=== PATIENT | female | born 1995 | race Caucasian/White ===

== ENCOUNTER 2017-06-28 00:26 | Emergency (ER) | payer SELFPAY ==
[2017-06-28 01:09] LABS: BILIRUBIN,URINE NEG (NEG); CLARITY,URINE CLOUDY; COLOR,URINE AMBER; GLUCOSE,URINE NEG (NEG)
[2017-06-28 01:10] LABS: BACTERIA,URINE FEW /HPF (0-FEW); NITRITE,URINE NEG (NEG); RBC,URINE >40 /HPF (0-2); SQUAMOUS EPITHELIAL CELL,UR FEW /LPF; UROBILINOGEN,URINE 0.2 mg/dL (0.2 mg/dL); WBC,URINE OCC /HPF (0-4)
--- NOTE | 2017-06-28 02:26 | RAD ---
INDICATION: [id number] Left flank and abdominal pain with hematuria. No priors. COMPARISON: None. TECHNIQUE: Axial CT images were obtained through the abdomen and pelvis without intravenous contrast. Limited assessment of solid organ structures and vasculature secondary to lack of intravenous contrast. One or more of the following individualized dose reduction techniques were utilized for this examination: 1. Automated exposure control; 2. Adjustment of the mA and/or kV according to patient size; 3. Use of iterative reconstruction technique. FINDINGS: Abdominal aorta is not grossly aneurysmal. No intrahepatic bile duct dilation. Poor evaluation of pancreas without contrast. Spleen grossly unremarkable. No left-sided hydronephrosis. Urinary bladder is largely decompressed. No right-sided hydronephrosis. There are some calcifications in the bilateral pelvis. The appendix measures approximately 5 mm without definite adjacent inflammation at this time. No dilated loops of bowel suggest obstruction. Small fat-containing umbilical hernia is suspected. IMPRESSION: 1. No evidence of hydronephrosis. There are calcification seen in the bilateral pelvis but suspect that these are phleboliths rather than distal ureter stone given the lack of more proximal hydronephrosis. Electronically signed by: Yefri Del Toro MD (06/28/2017 2:23 AM) [facility]
[2017-06-28 02:30] VITALS: BP 116/70
--- NOTE | 2017-06-28 02:30 | PHYS DOC ---
General Chief Complaint: ABDOMINAL PAIN Stated Complaint: ABDOMINAL PAIN / LOWER BACK PAIN Time Seen by MD: 00:28 Source: patient Exam Limitations: no limitations Problems: History of Present Illness Initial Comments Patient is a 21-year-old female complaining of abdominal discomfort. Patient states that she thinks she has a UTI. She's had suprapubic pain since yesterday, today had some mild left flank pain. She's had frequency and hesitancy no dysuria no odor no fever chills nausea vomiting diarrhea or body aches. She denies history of kidney stones and also states that her periods have been somewhat abnormal. She had May 20 that lasted 11 days before stopping spontaneously without treatment. She states that she began her menses again 2 days ago and is uncertain whether she's had actual hematuria or if persistent normal.. Home test was negative, patient follows with the book solicitor but she hasn't called her. Pain is described as mild to moderate crampy and achy no vaginal discharge dyspareunia or other concomitant symptoms. Timing/Duration: other Severity: mild Modifying Factors: improves with other Associated Symptoms: other Allergies: Coded Allergies: Latex, Natural Rubber (Verified Allergy, Unknown, 06/28/17) amoxicillin (Verified Allergy, Unknown, 06/28/17) Past Medical History Medical History: no pertinent history Surgical History: other Social History Smoker: non-smoker Alcohol: none Drugs: none Review of Systems Constitutional: denies chills, denies fever, denies malaise Respiratory: denies cough, denies shortness of breath Cardiovascular: denies chest pain, denies palpitations Gastrointestinal: abdominal pain, denies constipation, denies diarrhea, denies nausea, denies vomiting Genitourinary: see HPI Musculoskeletal: denies back pain, denies joint swelling, denies neck pain Psychiatric/Neurological: denies headache, denies numbness, denies paresthesia Physical Exam General Appearance: WD/WN, no apparent distress Ear, Nose, Throat: hearing grossly normal, normal ENT inspection Neck: non-tender, supple Respiratory: normal breath sounds, no respiratory distress Cardiovascular: normal peripheral pulses, regular rate, rhythm Gastrointestinal: soft (suprapubic tenderness negative Byrd negative McBurney bowel sounds are normal no masses abdomen is nondistended) Rectal: deferred Back: no CVA tenderness, no vertebral tenderness Extremities: non-tender, normal inspection Neurologic/Psychiatric: nursing care partner II-XII nml as tested, no motor/sensory deficits, alert, normal mood/affect, oriented x 3 Skin: normal color, warm/dry Orders, Labs, Meds Urine negative, moderate hematuria noted however patient is on her menses. I discussed findings with the patient and possibility of kidney stones she is agreeable to CT evaluation. PATIENT: JYOTI JOIENR ACCOUNT: [id number] : 1995 LOCATION: ER AGE: 21 SEX: F EXAM STATUS: REG ER ORD. PHYSICIAN: KASI PALAFOX DO REASON: L flank/abd pain, hematuria, hesitancy PROCEDURE: CT ABDOMEN PELVIS WO CONTRAST INDICATION: [id number] Left flank and abdominal pain with hematuria. No priors. COMPARISON: None. TECHNIQUE: Axial CT images were obtained through the abdomen and pelvis without intravenous contrast. Limited assessment of solid organ structures and vasculature secondary to lack of intravenous contrast. One or more of the following individualized dose reduction techniques were utilized for this examination: 1. Automated exposure control; 2. Adjustment of the mA and/or kV according to patient size; 3. Use of iterative reconstruction technique. FINDINGS: Abdominal aorta is not grossly aneurysmal. No intrahepatic bile duct dilation. Poor evaluation of pancreas without contrast. Spleen grossly unremarkable. No left-sided hydronephrosis. Urinary bladder is largely decompressed. No right-sided hydronephrosis. There are some calcifications in the bilateral pelvis. The appendix measures approximately 5 mm without definite adjacent inflammation at this time. No dilated loops of bowel suggest obstruction. Small fat-containing umbilical hernia is suspected. IMPRESSION: 1. No evidence of hydronephrosis. There are calcification seen in the bilateral pelvis but suspect that these are phleboliths rather than distal ureter stone given the lack of more proximal hydronephrosis. Electronically signed by: Matias Adan MD (06/28/2017 2:23 AM) [facility] DICTATED AND SIGNED BY: MATIAS ADAN MD DATE: 06/28/17 0157 CC: MYRNA ROSE MD; KASI PALAFOX DO ~ I discussed findings with the patient, in no obvious emergent condition as noted. Patient's vital signs are normal she's been resting comfortably sleeping at times waiting with her significant other. I discussed [id number] prescription medications as well as close follow-up with her doctor tomorrow. Signs and symptoms to monitor as well as indications for urgent return to the department were discussed and the patient's questions were answered to her satisfaction. She expressed agreement and understanding of treatment plan. Departure Time of Disposition: 02:35 Disposition: 01 HOME, SELF-CARE Diagnosis: Menometrorrhagia Condition: STABLE Patient Instructions: Menorrhagia, [id number] Additional Instructions: As discussed no emergent condition is evident for your symptoms from karol's emergency department visit. Work excuse for today. [id number] ibuprofen for baseline discomfort. A Tylenol No. 3 start pack was dispensed to you in the emergency department, take one every 6 hours for severe breakthrough pain. Contact your book solicitor when their office opens this morning to discuss karol's ED visit and schedule a follow-up appointment. Return to ED with new or changing symptoms. KASI PALAFOX DO Jun 28, 2017 02:30
[2017-06-28] MEDS ORDERED: ACETAMINOPHEN/CODEINE 300/30MG 4TABLET STARTPACK. PO ONE ×2 (02:44→02:45)
== END 2017-06-28 02:52 | disposition home or self-care (01) ==
LOC: ER 00:26
DX: N92.1 Excessive and frequent menstruation with irregular cycle (principal); R35.0 Frequency of micturition; R39.11 Hesitancy of micturition; Z91.040 Latex allergy status; Z88.1 Allergy status to other antibiotic agents
CPT/HCPCS: 74176; 81001; 81025; 99285-25